=== PATIENT | male | born 1980 | race Caucasian/White ===

== ENCOUNTER 2020-10-18 07:45 | Outpatient (REF) | payer OTHER, SELFPAY | END 2020-10-18 07:46 | disposition home or self-care (01) | LOC: HO.LAB 07:45 | PROVIDERS: Visit Provider Internal Medicine | DX: Z20.828 Contact with and (suspected) exposure to other viral communicable diseases (principal) | CPT/HCPCS: C9803; U0003 ==

== ENCOUNTER 2021-03-05 09:40 | Outpatient (REF) | payer OTHER, SELFPAY ==
[2021-03-05 09:59] LABS: COVID-19 Test Positive (Negative)
== END 2021-03-05 09:41 | disposition home or self-care (01) ==
LOC: HO.LAB 09:40
PROVIDERS: Visit Provider Internal Medicine
DX: Z20.822 Contact with and (suspected) exposure to COVID-19 (principal)
CPT/HCPCS: 36415; 87635; C9803